=== PATIENT | male | born 1945 | race Caucasian/White ===

== ENCOUNTER 2023-10-14 15:54 | Emergency (ER) | payer MEDICARE ==
[~2023-10-14] VITALS: Ht 182.8 cm; Wt 95.7 kg
[2023-10-14] MEDS ORDERED: QUETIAPINE FUMA25 M2 PO (16:05)
[2023-10-14] MEDS ORDERED: LEVOTHYROXINE75 MCG PO (16:05)
[2023-10-14] MEDS ORDERED: EFFEXOR XR75 M1 PO (16:07)
[2023-10-14] MEDS ORDERED: CARVEDILOL6.25 MG PO (16:07)
[2023-10-14] MEDS ORDERED: TAMSULOSIN HCL0.4 MG PO (16:08)
[2023-10-14] MEDS ORDERED: SEROQUEL25 MG PO (16:08)
[2023-10-14] MEDS ORDERED: OMEPRAZOLE40 MG PO (16:09)
[2023-10-14 16:19] LABS: BASO % 0.5 % (0.0-1.0); EOS # 0.1 10*3/uL (0.0-0.4); HEMATOCRIT 46.1 % (42.0-52.0); LYMPH # 2.4 10*3/uL (1.3-4.4); LYMPH % 29.7 % (27.0-41.0); MEAN CELL VOLUME 88.5 fl (80.0-94.0); MEAN CORPUSCULAR HGB 30.3 pg (27.0-31.0); MEAN CORPUSCULAR HGB CONC 34.3 g/dl (33.0-37.0); MEAN PLATELET VOLUME 9.3 fl (9.6-12.3); MONO # 0.8 10*3/uL (0.1-1.0); MONO % 9.9 % (3.0-9.0); NEUT # 4.8 10*3/uL (2.3-7.9); NEUT % 58.4 % (47.0-73.0); PLATELET COUNT AUTOMATED 301 10*3/uL (130-400); RED BLOOD COUNT 5.21 10*6/uL (4.50-5.90); RED CELL DISTRI WIDTH 12.6 % (0-14.5); WHITE BLOOD COUNT 8.2 10*3/uL (4.8-10.8)
[2023-10-14] MEDS ORDERED: LORazepam 2 MG TAB PO ONE (16:20)
[2023-10-14 16:40] LABS: BUN 24 mg/dl (9-23); CHLORIDE 107 mmol/L (98-107); POTASSIUM 4.3 mmol/L (3.4-5.1)
[2023-10-14 16:41] LABS: ETHYL ALCOHOL < 3.0 mg/dl (<3)
[2023-10-14 16:59] LABS: BILIRUBIN Negative (Negative); BLOOD Negative (Negative); CLARITY Clear (Clear); COLOR Yellow (Yellow); GLUCOSE Negative (Negative); KETONE Trace (Negative); LEUKO ESTERASE Negative (Negative); NITRITE Negative (Negative); SPECIFIC GRAVITY >= 1.030 (1.001-1.030)
[2023-10-14 17:06] LABS: URINE AMPHETAMINES Negative (1000ng/ml); URINE BARBITURATES Negative (200ng/ml); URINE BENZODIAZEPINES Negative (200ng/ml); URINE CANNABINOIDS (THC) Negative (50ng/ml); URINE COCAINE Negative (300ng/ml); URINE METHADONE Negative (300ng/ml); URINE OPIATES Negative (300ng/ml); URINE PHENCYCLIDINE Negative (25ng/ml)
[2023-10-14] MEDS ORDERED: AMBIEN10 M1 PO (17:20)
[2023-10-14 17:26] LABS: BACTERIA TRACE; MUCOUS 1+
== END 2023-10-14 18:09 | disposition home or self-care (01) ==
LOC: ED 15:54
PROVIDERS: Emergency Medicine
DX: F31.9 Bipolar disorder, unspecified (principal); F03.90 Unspecified dementia, unspecified severity, without behavioral disturbance, psychotic disturbance, mood disturbance, and anxiety; I10 Essential (primary) hypertension; E78.5 Hyperlipidemia, unspecified; Z79.899 Other long term (current) drug therapy